=== PATIENT | male | born 1985 | race Caucasian/White ===

== ENCOUNTER 2020-07-05 22:04 | Inpatient (IN) | payer MEDICAID, MEDICARE ==
[~2020-07-05] VITALS: Ht 172.7 cm; Wt 69.4 kg
--- NOTE | 2020-07-05 22:30 | NUR ---
PT BIB [facility] FOR [facility]CH EVAL FROM [facility] DUE TO AGITATION, ANXIETY, INCREASING COMBATIVENESS AND BEING NONCOMPLIANT TO MEDICATION. PT AAOX3,VSS, RESPIRATIONS EVEN AND UNLABORED ON RA W/ NAD NOTED. PT CONNECTED TO THE MONITOR AND POX. SITTER AT BEDSIDE FOR SAFETY.
--- NOTE | 2020-07-05 22:55 | NUR ---
SHERIFF AT BEDSIDE
[2020-07-05] MEDS ORDERED: diphenhydrAMINE HCL 50 MG/ML VIAL ONE (23:05)
[2020-07-05] MEDS ORDERED: HALOPERIDOL LACTATE INJ 5 MG/ML VIAL ONE (23:05)
[2020-07-05 23:12] LABS: BASOPHILS % (AUTO) 0.2 % (0.0-2.0); EOSINOPHILS % (AUTO) 0.9 % (0.0-6.0); HEMATOCRIT 35 % (39-51); HEMOGLOBIN 11.7 g/dL (13.5-17.5); LYMPHOCYTES # (AUTO) 1.5 /CMM (0.8-4.8); LYMPHOCYTES % (AUTO) 18.2 % (20.0-44.0); MEAN CORPUSCULAR HGB CONC 33 g/dl (31.0-36.0); MEAN CORPUSCULAR VOLUME 99 fL (80-96); MONOCYTES # (AUTO) 1.1 /CMM (0.1-1.30); MONOCYTES % (AUTO) 13.3 % (2.0-12.0); NEUTROPHILS # (AUTO) 5.5 /CMM (1.8-8.9); NEUTROPHILS % (AUTO) 67.4 % (43.0-81.0); PLATELET COUNT (AUTO) 189 /CMM (150-450); RED BLOOD CELL COUNT(AUTO) 3.54 MIL/uL (4.5-6.0); WHITE BLOOD COUNT (AUTO) 8.2 K/uL (4.3-11.0)
[2020-07-05 23:27] LABS: CARBON DIOXIDE 22 mmol/L (21-32); CHLORIDE 108 mmol/L (98-107); CREATININE 1.2 mg/dL (0.6-1.3); GLUCOSE 95 mg/dL (74-106); POTASSIUM 3.8 mmol/L (3.5-5.1); SODIUM SERUM 142 mmol/L (136-145); UREA NITROGEN, BLOOD 13 mg/dL (7-18)
[2020-07-05] MEDS ORDERED: diphenhydrAMINE HCL 50 MG/ML VIAL IM ONE (23:30)
[2020-07-05] MEDS ORDERED: HALOPERIDOL LACTATE INJ 5 MG/ML VIAL IM ONE (23:30)
--- NOTE | 2020-07-05 23:30 | NUR ---
URINE COLLECTED AND SENT TO LAB
[2020-07-05] MEDS ORDERED: LORAZEPAM INJ 2 MG/ML VIAL ONE (23:32)
[2020-07-05 23:41] LABS: ALANINE AMINOTRANSFERASE 23 U/L (12-78); ALBUMIN 3.4 g/dL (3.4-5.0); ALCOHOL, BLOOD < 3 mg/dL (0-0); ALKALINE PHOSPHATASE 68 U/L (46-116); ASPARTATE AMINOTRANSFERASE 21 U/L (15-37); BILIRUBIN,DIRECT 0.1 mg/dL (0.0-0.2); BILIRUBIN,TOTAL 0.2 mg/dL (0.2-1.0); TOTAL PROTEIN, SERUM 7.1 g/dL (6.4-8.2)
[2020-07-05 23:44] LABS: ACETAMINOPHEN 0 ug/ml (10-30)
[2020-07-05 23:51] LABS: BILIRUBIN,URINE NEGATIVE (NEGATIVE); BLOOD, URINE NEGATIVE Ery/uL (NEGATIVE); COLOR,URINE YELLOW (YELLOW); LEUKOCYTE ESTERASE ,URINE NEGATIVE (NEGATIVE); NITRITE, URINE NEGATIVE (NEGATIVE); PH,URINE 6.5 (5.0-8.0); PROTEIN,URINE NEGATIVE (NEGATIVE); UGLUCOSE NEGATIVE (NEGATIVE); UROBILINOGEN,URINE 0.2 EU/dL (0.2)
--- NOTE | 2020-07-06 04:25 | NUR ---
Patient is resting comfortably in bed with eyes closed. Easily aroused. VSS
[2020-07-06] MEDS ORDERED: LORAZEPAM INJ 2 MG/ML VIAL ONE ×3 (05:16→09:54)
[2020-07-06] MEDS ORDERED: HALOPERIDOL LACTATE INJ 5 MG/ML VIAL ONE (05:17)
[2020-07-06] MEDS ORDERED: LORAZEPAM INJ 2 MG/ML VIAL IV ONE ×3 (05:30→06:00)
[2020-07-06] MEDS ORDERED: HALOPERIDOL LACTATE INJ 5 MG/ML VIAL IM ONE (05:30)
--- NOTE | 2020-07-06 06:01 | NUR ---
PT RESTLESS, MD AWARE.
[2020-07-06] MEDS ORDERED: OLANZAPINE 10 MG VIAL IM ONE ×2 (06:47→07:00)
[2020-07-06] MEDS ORDERED: LORAZEPAM INJ 2 MG/ML VIAL IM ONE ×2 (07:00→08:30)
[2020-07-06] MEDS ORDERED: diphenhydrAMINE HCL 50 MG/ML VIAL IM ONE (08:30)
--- NOTE | 2020-07-06 09:20 | NUR ---
DAD AT BEDSIDE
--- NOTE | 2020-07-06 09:30 | NUR ---
SPOKE WITH PAOLA,[phone],STS HE IS FAMILIAR WITH PATIENT AND WILL CALL [facility] TO GET PERMISSION TO TAKE HIM BACK
[2020-07-06] MEDS ORDERED: diphenhydrAMINE HCL 50 MG/ML VIAL ONE (09:53)
--- NOTE | 2020-07-06 10:51 | NUR ---
QI contacted Rcis Kym who evaluated this patient. Per Kym, patient was to return back to [facility] but patient cannot return due to patients discord at the facility. SW to follow-up with patients conservator Connie Robles (mother) and QI Soler at the [facility] .
--- NOTE | 2020-07-06 10:51 | NUR ---
QI spoke with product manufacturing professional Gener. Per Gener, QI Soler at [facility] is currently attempting to place the patient. Per product manufacturing professional Gener, pending authorization from patients insurance. Plan: This SW will wait to hear back from QI Soler at [facility] regarding status of referral. This SW will follow-up with [facility] is status is not provided
--- NOTE | 2020-07-06 12:45 | NUR ---
INFORMED LESLEE BORRERO RN,[phone] AND STEPH ORDOÑEZ WHO IS THE CONSERVATOR REGARDING PLAN TO ADMIT PATIENT TO TAKE CARE OF HIS R FOOT OM/CELLULITIS AND LATER PLACEMENT/REHAB.
[2020-07-06] MEDS ORDERED: BISA10SU11 RC (12:49)
[2020-07-06] MEDS ORDERED: ATEN25TA PO (12:49)
[2020-07-06] MEDS ORDERED: CHLO100T24 PO (12:49)
[2020-07-06] MEDS ORDERED: HYDR10SY16 PO (12:49)
[2020-07-06] MEDS ORDERED: ONDA4TAB5 PO (12:49)
[2020-07-06] MEDS ORDERED: OMEG1CAP PO (12:49)
[2020-07-06] MEDS ORDERED: MULT-447 PO (12:49)
[2020-07-06] MEDS ORDERED: SENN-261 PO (12:49)
[2020-07-06] MEDS ORDERED: TRIH2TAB3 PO (12:49)
[2020-07-06] MEDS ORDERED: GEMF600T5 PO (12:49)
[2020-07-06] MEDS ORDERED: FERR325T23 PO (12:49)
[2020-07-06] MEDS ORDERED: DIVA-78 PO ×2 (12:49→14:06)
[2020-07-06] MEDS ORDERED: TOPI100T38 PO (12:49)
[2020-07-06] MEDS ORDERED: ASCO-352 PO (12:49)
[2020-07-06] MEDS ORDERED: DOCU-141 PO (12:49)
[2020-07-06] MEDS ORDERED: MAGN400O6 PO (12:49)
[2020-07-06] MEDS ORDERED: QUET25TA PO (12:49)
[2020-07-06] MEDS ORDERED: ACET-2605 PO (12:49)
[2020-07-06] MEDS ORDERED: ACET-868 PO ×2 (12:49)
[2020-07-06] MEDS ORDERED: LORA-259 PO (12:49)
[2020-07-06] MEDS ORDERED: HEPA50007 SQ (12:49)
[2020-07-06] MEDS ORDERED: FLUV50TA3 PO (12:49)
[2020-07-06] MEDS ORDERED: ZINC1CAP2 PO (12:49)
[2020-07-06] MEDS ORDERED: VANCOMYCIN 1 GM in IV D5W 250 ML IV ONE (13:00)
[2020-07-06] MEDS ORDERED: GENTAMICIN 80 MG in IV D5W 50 ML IV ONE (13:00)
[2020-07-06] MEDS ORDERED: HYDR-4384 PO (14:06)
[2020-07-06] MEDS ORDERED: CHLO200T9 PO (14:06)
--- NOTE | 2020-07-06 14:45 | NUR ---
BED ASSIGNED IS [id number]
--- NOTE | 2020-07-06 15:00 | NUR ---
report given to [facility] for kavya
[2020-07-06] MEDS ORDERED: HYDR-3642 PO (15:59)
[2020-07-06 16:00] VITALS: BP 104/69
[2020-07-06] MEDS ORDERED: MAG HYDROX/AL HYDROX/SIMETH 30 ML UDC PO PRN (16:00)
[2020-07-06] MEDS ORDERED: ONDANSETRON HCL/PF 4 MG/2 ML VIAL IVP PRN (16:00)
[2020-07-06] MEDS ORDERED: Z GUARD REMEDY 2 OZ OINT TP PRN (16:00)
[2020-07-06] MEDS ORDERED: ZOLPIDEM TARTRATE 5 MG TABLET PO PRN (16:00)
[2020-07-06] MEDS ORDERED: ACETAMINOPHEN 325 MG TABLET PO PRN (16:00)
[2020-07-06] MEDS ORDERED: MAGNESIUM HYDROXIDE 30 ML UDC PO PRN (16:00)
--- NOTE | 2020-07-06 16:00 | NUR ---
MS DITCHING MACHINE ENGINEER NOTES ADMITTED PATIENT FROM ER, REPORT GIVEN BY ANJU PITTMAN, ALERT ORIENTED X 2, PATIENT EASILY AGITATED AND REFUSED BODY CHECK, RIGHT LOWER LEG DRESSING CHECKED,REFUSED PHOTO TAKEN, PATIENT STATING "NO". WAS ABLE TO VISUALIZE BILATERAL WRIST REDNESS AND MULTIPLE SCABS, PATIENT REFUSED PHOTO TAKEN. NO ACUTE DISTRESS NOTED. BREATHING UNLABORED. NO SOB NOTED .IV ACCESS PATENT AND INTACT, NO REDNESS, NO SWELLING NOTED. ORIENTED TO THE ROOM , SHOW HOW TO USE CALL LIGHT, PLACED WITHIN REACH. SITTER AT BEDSIDE. NEEDS ATTENDED AND ANTICIPATED. SAFETY MEASURES IN PLACE. WILL CONTINUE TO MONITOR ACCORDINGLY.
--- NOTE | 2020-07-06 16:04 | NUR ---
PT BEING TRANSPORTED TO UNIT ON [facility] WITH EMT AND SITTER AT BEDSIDE. PT IS IN STABLE CONDITION FOR TRANSPORT.
[2020-07-06] MEDS: ATENOLOL 25 MG TABLET PO SCH (17:00)
--- NOTE | 2020-07-06 17:00 | NUR ---
MS RN NOTES LOPID NOT AVAILABLE AT THIS TIME ON THE FLOOR, CALLED PHARMACY TO FOLLOW UP , SPOKE WITH KAMARI AND SAID THEY WILL BRING MEDICATION TO THE FLOOR, WILL ADMINISTER ONCE AVAILABLE.
[2020-07-06] MEDS: chlorproMAZINE HCL 25 MG TABLET PO SCH ×2 (17:01→23:52)
--- NOTE | 2020-07-06 17:03 | NUR ---
MS RN NOTES CLARIFIED DIET ORDER WITH DAVID ZAPIEN YARD COUPLER PRESENT ON THE FLOOR, WITH ORDER FOR CARDIAC DIET, ORDER CLARIFIED AND READ BACK WITH YARD COUPLER DAVID ZAPIEN, NOTED AND CARRIED OUT.
[2020-07-06] MEDS: GEMFIBROZIL 600 MG TABLET PO SCH (17:31)
[2020-07-06] MEDS: TRIHEXYPHENIDYL HCL 2 MG TABLET PO SCH (17:31)
--- NOTE | 2020-07-06 19:00 | NUR ---
MS RN NOTES PATIENT IN BED , HEAD OF BED ELEVATED , ALERT ORIENTED X 2. NO ACUTE DISTRESS NOTED. BREATHING UNLABORED. NO SOB NOTED. IV ACCESS PATENT AND INTACT, NO REDNESS NO SWELLING , NO BLEEDING NOTED. NEEDS ATTENDED AND ANTICIPATED. SITTER AT BEDSIDE. SAFETY MEASURES IN PLACE. CALL LIGHT WITHIN REACH. WILL ENDORSE TO NIGHT NURSE FOR CONTINUITY OF CARE.
--- NOTE | 2020-07-06 19:25 | NUR ---
MS RN OPENING NOTES RECEIVED PATIENT RESTING IN BED , HEAD OF BED ELEVATED , ALERT ORIENTED X 2. NO ACUTE DISTRESS NOTED. BREATHING UNLABORED. NO SOB NOTED. IV ACCESS PATENT AND INTACT, NO REDNESS NO SWELLING , NO BLEEDING NOTED. NEEDS ATTENDED AND ANTICIPATED. SITTER AT BEDSIDE. SAFETY MEASURES IN PLACE. CALL LIGHT WITHIN REACH. WILL CONTINUE TO MONITOR FOR ANY CHANGES.
--- NOTE | 2020-07-06 21:06 | NUR ---
MS RN NOTE PATIENT REFUSED VITALS DESPITE OF EXPLANATIONS X 3. WILL CONTINUE TO MONITOR FOR ANY CHANGES.
[2020-07-06] MEDS: TOPIRAMATE 100 MG TABLET PO SCH (21:18)
[2020-07-06] MEDS: hydrOXYzine 10 MG TABLET PO SCH (21:18)
[2020-07-06] MEDS: DIVALPROEX SODIUM 500 MG TABLET.DR PO SCH (22:00)
[2020-07-06] MEDS ORDERED: Medication Not On Formulary EA (Omega-3 Fatty Acids/Fish Oil (Fish Oil 1,000 Mg Capsule) PO SCH (22:00)
[2020-07-06] MEDS: FLUVOXAMINE MALEATE 50 MG TABLET PO SCH (22:57)
--- NOTE | 2020-07-06 22:59 | NUR ---
MS RN NOTE PATIENT REFUSED TO TAKE DEPAKOTE 1000MG ORDERED, GOT AGITATED & SAID, " NO, NO." WILL CONTINUE TO MONITOR.
[2020-07-06] MEDS: VANCOMYCIN 1 GM in IV D5W 250ml IV SCH (23:40)
[2020-07-06] MEDS ORDERED: chlorproMAZINE HCL 25 MG TABLET ONE (23:44)
--- NOTE | 2020-07-07 06:51 | NUR ---
MS RN NOTE: INFORMED RADIOLOGY PATIENT HAS AN ORDER OF STAT RIGHT XR COMPLETE, CALLED & INFORMED RADIOLOGY.
--- NOTE | 2020-07-07 06:54 | NUR ---
MS RN CLOSING NOTES PATIENT SLEPT INTERMITTENTLY, PREFERS HEAD OF BED ELEVATED TO HIGH TOBIN POSITION, ALERT ORIENTED X 2. NO ACUTE DISTRESS NOTED. BREATHING UNLABORED. NO SOB NOTED. IV ACCESS PATENT AND INTACT, NO REDNESS NO SWELLING , NO BLEEDING NOTED. NEEDS ATTENDED AND ANTICIPATED. SITTER AT BEDSIDE. SAFETY MEASURES IN PLACE. CALL LIGHT WITHIN REACH. WILL ENDORSE TO AM RN FOR JIM.
--- NOTE | 2020-07-07 07:29 | NUR ---
MS RN NOTE: REFUSED VANCOMYCIN PATIENT REFUSED SCHEDULED VANCOMYCIN IV TO BE HUNG, ASKED THE RN NOT TO TOUCH THE IV STAND, AGITATED, YELLING. VANCOMYCIN WAS MIXED TO BE HUNG BUT ENDORSED TO AM RN TO TRY AGAIN TO ADMINISTER THE MEDICINE WHEN PATIENT IS CALM.
[2020-07-07 07:36] LABS: BASOPHILS % (AUTO) 0.2 % (0.0-2.0); EOSINOPHILS % (AUTO) 1.5 % (0.0-6.0); HEMATOCRIT 35 % (39-51); HEMOGLOBIN 11.6 g/dL (13.5-17.5); LYMPHOCYTES # (AUTO) 1.8 /CMM (0.8-4.8); LYMPHOCYTES % (AUTO) 31.9 % (20.0-44.0); MEAN CORPUSCULAR HGB CONC 33 g/dl (31.0-36.0); MEAN CORPUSCULAR VOLUME 99 fL (80-96); MONOCYTES # (AUTO) 0.9 /CMM (0.1-1.30); MONOCYTES % (AUTO) 15.6 % (2.0-12.0); NEUTROPHILS # (AUTO) 2.9 /CMM (1.8-8.9); NEUTROPHILS % (AUTO) 50.8 % (43.0-81.0); PLATELET COUNT (AUTO) 170 /CMM (150-450); RED BLOOD CELL COUNT(AUTO) 3.52 MIL/uL (4.5-6.0); WHITE BLOOD COUNT (AUTO) 5.7 K/uL (4.3-11.0)
[2020-07-07 08:00] VITALS: BP 112/69
[2020-07-07] MEDS: GEMFIBROZIL 600 MG TABLET PO SCH ×2 (08:00→16:20)
[2020-07-07 08:05] LABS: CALCIUM, SERUM 8.8 mg/dL (8.5-10.1); CREATININE 0.9 mg/dL (0.6-1.3); MAGNESIUM 2.1 mg/dL (1.8-2.4); PHOSPHORUS 3.8 mg/dL (2.5-4.9); POTASSIUM 3.5 mmol/L (3.5-5.1)
[2020-07-07] MEDS: VANCOMYCIN 1 GM in IV D5W 250ml IV SCH ×3 (08:26→22:57)
--- NOTE | 2020-07-07 08:26 | NUR ---
Patient agreed for Vancomycin scheduled at 0700 am. Medication administrated
[2020-07-07] MEDS: hydrOXYzine 10 MG TABLET PO SCH ×2 (09:00→21:11)
[2020-07-07] MEDS: TRIHEXYPHENIDYL HCL 2 MG TABLET PO SCH ×2 (09:00→16:20)
[2020-07-07] MEDS: TOPIRAMATE 100 MG TABLET PO SCH ×2 (09:00→21:10)
[2020-07-07] MEDS: DIVALPROEX SODIUM 500 MG TABLET.DR PO SCH ×2 (09:00→21:11)
--- NOTE | 2020-07-07 09:00 | NUR ---
Patient refusing AM meds, patient unable to learn. Will attempt to administrate AM meds again
--- NOTE | 2020-07-07 10:51 | NUR ---
WOUND CARE CONSULT: PT REFUSED SKIN ASSESSMENT. PT PACING IN HIS ROOM AND WEARING AN ORTHO BOOT ON RT ANKLE. PT COMBATIVE AT TIMES PER NURSING STAFF. PT DID NOT ALLOW ANY PHOTOS. WILL SEE PT PT CONDITION PERMITS. CURRENT BERTHA SCORE IS 19. Addendum: 07/07/20 at 1053 by WILIAN REDD WNDNU DISCUSSED PT REFUSAL AND PACING BEHAVIOR WITH NURSING STAFF AND HIM ANALYST.
[2020-07-07] MEDS: chlorproMAZINE HCL 25 MG TABLET PO SCH ×3 (11:34→21:42)
[2020-07-07] MEDS: FERROUS SULFATE (325 MG) 325 MG/TAB TABLET PO SCH (11:35)
[2020-07-07] MEDS: ATENOLOL 25 MG TABLET PO SCH ×2 (11:35→16:20)
--- NOTE | 2020-07-07 11:39 | NUR ---
Patient took AM meds selectively. Rest of meds were refused and documented as non-administrated
--- NOTE | 2020-07-07 14:00 | NUR ---
Patient refused blood draw for Vancomycin trough. Education provided , patient still refusing
[2020-07-07] MEDS: ENOXAPARIN SODIUM 40 MG/0.4 ML DISP.SYRIN SQ SCH (15:00)
--- NOTE | 2020-07-07 15:27 | NUR ---
Patient refused second attempt sfor blood draw
--- NOTE | 2020-07-07 15:28 | NUR ---
Patient refused Lovenox , he became very agitated; yells out. Will attempt to administer later
--- NOTE | 2020-07-07 16:10 | NUR ---
Vancomycin scheduled for 1500 pm not administrated. Patient refused vanco trough 2 times.
--- NOTE | 2020-07-07 17:28 | NUR ---
Per pharmacist Vanco at 2300 can be administrated without vanco trough if patient will agree
--- NOTE | 2020-07-07 18:23 | NUR ---
Patient is calm at this time, sitter at bedside. Patient has no s/s any type of distress. IV lines intact and covered with sleeves. Patient is oriented x1, easily agitated , does not like to be touched. Safety precautions in place . Will endorse to next shift for JIM
--- NOTE | 2020-07-07 19:41 | NUR ---
RN OPENING NOTES PATIENT RECEIVED SITTING ON FLOOR, A/O X1. STABLE ON RA WITH BREATHING EVEN AND UNLABORED, NO SOB NOTED. NO SIGNS OF ACUTE DISTRESS. NO COMPLAINTS OR SIGNS OF PAIN OR DISCOMFORT. IV LOCATED ON LAC #20 SL AND R AC #20 SL. SAFETY PRECAUTIONS IN PLACE WITH BED IN LOWEST POSITION, CALL LIGHT ON BED, SAFETY PRECAUTIONS IN PLACE. 1:1 SITTER. WILL CONTINUE TO MONITOR THROUGHOUT THE NIGHT.
--- NOTE | 2020-07-07 20:14 | NUR ---
PATIENT SITTING ON FLOOR, REFUSE TO LAY IN BED. REFUSED 2000 VITALS, WILL TRY AGAIN LATER. NO SIGNS OF ACUTE DISTRESS.
--- NOTE | 2020-07-07 21:00 | NUR ---
PATIENT REFUSED BLOOD DRAW FOR VANCO TROUGH SCHEDULED EARLIER IN THE DAY AT 1400
[2020-07-07] MEDS: FLUVOXAMINE MALEATE 50 MG TABLET PO SCH (21:11)
[2020-07-07] MEDS ORDERED: chlorproMAZINE HCL 25 MG TABLET ONE (21:30)
[2020-07-07 22:12] VITALS: BP 115/78
--- NOTE | 2020-07-07 22:13 | NUR ---
PATIENT ALLOWED TO TAKE VITALS. PATIENT TOOK ALL MEDICATIONS.
--- NOTE | 2020-07-07 22:33 | NUR ---
PATIENT ALLOWED TO DRAW BLOOD FOR VANCO TROUGH
[2020-07-07] MEDS: HYDROCODONE/APAP 5/325MG TABLET PO PRN (22:57)
--- NOTE | 2020-07-07 23:08 | NUR ---
PATIENT COMPLAINING OF PAIN ON R LEG SCREAMING THAT IT HURTS AND POINTING AT LEG. PRN NORCO ADMINISTERED. ASSISTED WITH REMOVING BOOT, BUT PATIENT DID NOT ALLOW TO TOUCH DRESSING OR FOOT.
--- NOTE | 2020-07-07 23:55 | NUR ---
IV VANCOMYCIN UNABLE TO FINISH. IV PUMP SHOWS DOWNSTREAM OCCLUSION, PATIENT NOT ALLOWING TO FLUSH IV SITE OR TOUCH IV PUMP. PATIENT AGITATED AND YELLING. APPROXIMATELY 50 ML INFUSED.
--- NOTE | 2020-07-08 00:36 | NUR ---
CONTINUED IV VANCO, ABLE FINISH ADMINISTRATION
[2020-07-08] MEDS: VANCOMYCIN 1 GM in IV D5W 250ml IV SCH ×2 (06:09→17:20)
--- NOTE | 2020-07-08 06:45 | NUR ---
RN CLOSING NOTES PATIENT RESTING IN BED, A/O X1 EASILY AGITATED. STABLE ON RA WITH BREATHING EVEN AND UNLABORED, NO SOB NOTED. NO SIGNS OF ACUTE DISTRESS. NO COMPLAINTS OR SIGNS OF PAIN OR DISCOMFORT. IV LOCATED ON LAC #20 SL AND R AC #20 SL. BOOT LOCATED ON R FOOT. SAFETY PRECAUTIONS IN PLACE WITH BED IN LOWEST POSITION, CALL LIGHT ON BED, SAFETY PRECAUTIONS IN PLACE. 1:1 SITTER. ALL NEEDS ATTENDED TO. WILL ENDORSE TO ONCOMING SHIFT ABOUT JMI.
[2020-07-08 06:50] LABS: CALCIUM, SERUM 9.1 mg/dL (8.5-10.1); POTASSIUM 3.6 mmol/L (3.5-5.1)
--- NOTE | 2020-07-08 07:11 | NUR ---
MS RN OPENING NOTES PATIENT RECEIVED AWAKE IN BED IN NO ACUTE SIGNS OF DISTRESS. 1:1 SITTER PRESENT AT BEDSIDE. A/O X1. VERBALLY RESPONSIVE. QUIET AND CALM AT THIS TIME. STABLE ON RA WITH BREATHING EVEN AND UNLABORED. IV LOCATED ON LAC #20 SL AND R AC #20 SL. SAFETY PRECAUTIONS IN PLACE: BED IN LOWEST LOCKED POSITION, SIDE-RAILS UP X2. CALL LIGHT ON. WILL CONTINUE TO MONITOR PT ACCORDINGLY.
--- NOTE | 2020-07-08 07:20 | NUR ---
RN NOTES Stopped Vancomycin, vanco trough received at 27. 100 ml infused. Vanco trough pulled last night at 2200 showed as 12.
[2020-07-08 08:00] VITALS: BP 122/84
[2020-07-08] MEDS: chlorproMAZINE HCL 25 MG TABLET PO SCH ×3 (08:16→23:11)
[2020-07-08] MEDS: DIVALPROEX SODIUM 500 MG TABLET.DR PO SCH ×3 (08:16→20:17)
[2020-07-08] MEDS: TRIHEXYPHENIDYL HCL 2 MG TABLET PO SCH ×2 (08:17→16:10)
[2020-07-08] MEDS: FERROUS SULFATE (325 MG) 325 MG/TAB TABLET PO SCH (08:17)
[2020-07-08] MEDS: TOPIRAMATE 100 MG TABLET PO SCH ×2 (08:17→20:17)
[2020-07-08] MEDS: GEMFIBROZIL 600 MG TABLET PO SCH ×2 (08:17→16:10)
[2020-07-08] MEDS: hydrOXYzine 10 MG TABLET PO SCH ×2 (08:18→20:17)
[2020-07-08] MEDS: ATENOLOL 25 MG TABLET PO SCH ×2 (08:18→16:11)
[2020-07-08] MEDS: ENOXAPARIN SODIUM 40 MG/0.4 ML DISP.SYRIN SQ SCH (08:21)
--- NOTE | 2020-07-08 09:21 | NUR ---
RN NOTES ASKED PT IF I CAN DO REMOVE DRESSING, DO WOUND ASSESSMENT AND TAKE PHOTOS OF RIGHT LEG/FOOT BUT PT REFUSED. WILL TRY AGAIN LATER.
--- NOTE | 2020-07-08 13:47 | NUR ---
RN NOTES PT IN HIS ROOM AND PER HIS 1:1 SITTER, PT SUDDENLY PICK-UP HIS MEDICAL RIGHT BOOT AND HIT HIS ROOM WINDOW AND BROKE IT WITHOUT ANY PROVOCATION. I WENT TO PT ROOM IMMEDIATELY, TALKED TO HIM WHY HE DID IT BUT HE STATED THAT HE JUST DID IT WITHOUT ANY REASON. SECURITY CALLED, CAME TO UNIT AND ASSISTED PT TO HIS NEW ROOM. PT WAS MOVED TO ROOM 329. YANNI SHAW MADE AWARE. PT'S MOTHER INFORMED. PT IN HIS ROOM CALM AND QUIET AT THIS TIME. WILL CONTINUE TO CLOSELY MONITOR PT.
[2020-07-08 16:00] VITALS: BP 110/59
--- NOTE | 2020-07-08 16:52 | NUR ---
PT REFUSED THE ARTERIAL DPLR LOWER EXT EXAM. ADVISED ATTENDING RN. WILL TRY AGAIN TOMORROW WHEN PT IS COOPERATIVE.
[2020-07-08] MEDS ORDERED: chlorproMAZINE HCL 25 MG TABLET PO PRN (18:00)
[2020-07-08] MEDS: VANCOMYCIN 0.75 GM in IV D5W 250 ML IV SCH (18:00)
--- NOTE | 2020-07-08 18:33 | NUR ---
RN NOTES IV VANCO SCHEDULED FOR 1800 NOT ADMINISTERED, IT WAS GIVEN EARLIER AT 1720. PHARMACIST AUTUMN MADE AWARE. NEW DOSE OF IV VANCO 0.75 MG/25OML D5W TO BE ADMINISTRED AT SCHEDULED TIME AT 0200. WILL CONTINUE TO MONITOR.
--- NOTE | 2020-07-08 19:28 | NUR ---
MS RN CLOSING NOTES PATIENT IN BED AWAKE AND RESTING AT SEMI-TOBIN'S POSITION. 1:1 SITTER PRESENT AT BEDSIDE. A/O X1. VERBALLY RESPONSIVE. EASILY AGITATED AND SCREAMS ON AND OFF DURING THE DAY. STABLE ON RA WITH BREATHING EVEN AND UNLABORED, NO SOB NOTED DURING THE DAY. PIV'S ON LAC #20 SL AND R AC #20 SL BOTH INTACT, PATENT FLUSHES WELL. ALL NEEDS ANTICIPATED AND PROVIDED WELL. SAFETY PRECAUTIONS IN PLACE: BED IN LOWEST LOCKED POSITION, SIDE-RAILS UP X2. CALL LIGHT ON. ENDORSED TO COATING MACHINE OPERATOR HELPER NURSE OSCAR FOR JIM.
--- NOTE | 2020-07-08 19:36 | NUR ---
MS RN OPEN NOTES PT IS LAYING IN BED. A/O X1, GETS EASILY AGITATED. ON RA, NO SOB/ ACUTE RESPIRATORY DISTRESS NOTED. IV IN R AC #22G IS PATENT AND INTACT. BED IS IN LOWEST LOCKED POSITION WITH SIDE RAILS UP X3, SEMI FOWLERS. CALL LIGHT IS WITHIN REACH. 1:1 SITTER IS AT BED SIDE. WILL CONTINUE TO MONITOR.
[2020-07-08 20:00] VITALS: BP 103/66
--- NOTE | 2020-07-08 21:00 | NUR ---
MS RN NOTES PT DID NOT ALLOW LAB TO DRAW BLOOD.
[2020-07-08] MEDS: FLUVOXAMINE MALEATE 50 MG TABLET PO SCH (22:27)
--- NOTE | 2020-07-09 00:20 | NUR ---
MS RN NOTES PT REFUSED DRESSING CHANGE ON R FOOT WOUND. ALSO REFUSED SAMPLE OF WOUND FOR WOUND CULTURE. WILL TRY AGAIN LATER AND WILL CONTINUE TO MONITOR.
[2020-07-09] MEDS: VANCOMYCIN 0.75 GM in IV D5W 250 ML IV SCH ×3 (01:45→18:00)
--- NOTE | 2020-07-09 06:30 | NUR ---
MS RN NOTES PT REFUSED BLOOD DRAW FOR LAB.
--- NOTE | 2020-07-09 06:57 | NUR ---
MS RN CLOSE NOTES PATIENT IS LAYING IN BED. A/O X1, GETS AGITATED EASILY. PT IS STABLE ON RA, NO SOB/ACUTE RESPIRATORY DISTRESS NOTED. IVS IN L AC #20G AND R AC #22G ARE PATENT AND INTACT, ABLE TO FLUSH EASILY. ALL DUE ANTIBIOTICS/MEDS GIVEN. 1:1 SITTER IS AT BEDSIDE. BED IS IN LOWEST LOCKED POSITION WITH SIDE RAILS UP X2, SEMI FOWLERS. CALL LIGHT IS WITHIN REACH. WILL ENDORSE TO AM NURSE.
--- NOTE | 2020-07-09 07:18 | NUR ---
ms rn received on bed, awake,alert,oriented x 1,not in any form of distress, calm at this moment but easily agitated and shouting per curve cleaner, no s/s of pain at this time, w/ sitter for safety and comfort,all needs attended.
[2020-07-09 08:00] VITALS: BP 112/62
[2020-07-09] MEDS: ATENOLOL 25 MG TABLET PO SCH ×2 (09:00→18:27)
--- NOTE | 2020-07-09 09:50 | NUR ---
ms webster breakfast served,due meds given, tolerated well.
--- NOTE | 2020-07-09 10:00 | NUR ---
ms rn refused mri today, shouting again to semiconductor technician, refused blood draw today.
[2020-07-09] MEDS: TOPIRAMATE 100 MG TABLET PO SCH ×2 (10:07→20:55)
[2020-07-09] MEDS: TRIHEXYPHENIDYL HCL 2 MG TABLET PO SCH ×2 (10:07→18:12)
[2020-07-09] MEDS: GEMFIBROZIL 600 MG TABLET PO SCH ×2 (10:08→18:12)
[2020-07-09] MEDS: hydrOXYzine 10 MG TABLET PO SCH ×2 (10:08→20:55)
[2020-07-09] MEDS: DIVALPROEX SODIUM 500 MG TABLET.DR PO SCH ×3 (10:08→20:54)
[2020-07-09] MEDS: FERROUS SULFATE (325 MG) 325 MG/TAB TABLET PO SCH (10:08)
[2020-07-09] MEDS: chlorproMAZINE HCL 25 MG TABLET PO SCH ×3 (10:12→22:55)
[2020-07-09] MEDS: ENOXAPARIN SODIUM 40 MG/0.4 ML DISP.SYRIN SQ SCH (10:29)
[2020-07-09] MEDS ORDERED: chlorproMAZINE HCL 25 MG TABLET PO PRN (10:30)
--- NOTE | 2020-07-09 11:30 | NUR ---
ms rn refused venous doppler today, mom is aware that he is refusing everything
[2020-07-09 16:00] VITALS: BP 105/63
--- NOTE | 2020-07-09 17:00 | NUR ---
ms rn asked dr. morrow if he is going to do debridment today, said that not sure if patient cooperate.
[2020-07-09 17:53] LABS: CALCIUM, SERUM 8.7 mg/dL (8.5-10.1); CREATININE 1.2 mg/dL (0.6-1.3); POTASSIUM 3.8 mmol/L (3.5-5.1)
--- NOTE | 2020-07-09 18:03 | NUR ---
ms rn on bed,no distress noted.all needs attended, refused to change dressing of the wound,denies pain at this time.
--- NOTE | 2020-07-09 18:05 | NUR ---
ms rn patient still refused to take a look at his wound, shouting everytime i look at it.
--- NOTE | 2020-07-09 19:00 | NUR ---
ms rn verified vanco dose w/ rx ok to give it tonight.
[2020-07-09 20:00] VITALS: BP 113/67
[2020-07-09] MEDS ORDERED: LORAZEPAM 1 MG TABLET PO ONE (20:00)
--- NOTE | 2020-07-09 20:00 | NUR ---
RE: VANCO TROUGH and GIVING VANCO Called the pharmacy and spoke to Meghana at 1900 and 200 regarding the Vanco trough being 25 and should I give the 2100 dose as ordered, she stated yes to give. Called back at 1999 and she reaasured me to give that modifications were made and to give the 2100 dose.
[2020-07-09] MEDS: VANCOMYCIN 1 GM in IV D5W 250ml IV SCH (20:56)
[2020-07-09] MEDS: FLUVOXAMINE MALEATE 50 MG TABLET PO SCH (22:35)
[2020-07-09] MEDS ORDERED: chlorproMAZINE HCL 25 MG TABLET ONE ×2 (22:46→22:50)
--- NOTE | 2020-07-10 04:56 | NUR ---
ALFRED NOTES: HIS MOTHER WAS CALLED @[phone] Jasmin ON am SHIFT AND MYSELF GOT THE CONSENT OVER TH PHONE FOR DEBRIDMENT AND GRAFT. HE IS LOUD AND AGGRESSIVE. WILL REPEAT HIMSELF FREQ. AND LOUD. AMBULATED AROUND THE CORRIDOR TIMES 3 WITH NUSE AT HIS SIDE STEADY GAIT. NEEDS TO BE TALKED INTO EVERYTHING THAT IS TO BE GIVEN TO HIM (MEDS) OR DONE TO HIM iv atb. SITTER AT THE BEDSIDE THRU THE NIGHT
--- NOTE | 2020-07-10 07:00 | NUR ---
RN OPENING NOTES RECEIVED PT AWAKE IN BED AT THIS TIME. PT IS CALM AND EASILY GETS AGITATED PER BRIDGE MAINTENANCE WORKER NURSE. NO SOB NOTED, NO S/S OF ANY ACUTE DISTRESS NOTED. NO C/O PAIN AT THIS TIME. RESPIRATIONS ARE EVEN AND UNLABORED. PT IS STABLE ON RA. IV ACCESS NOTED IN LAC G# 20, INTACT, PATENT AND FLUSHING WELL. PT NOTED WITH RIGHT FOOT WOUND. SAFETY PRECAUTION IN PLACE AND MAINTAINED AT ALL TIMES. BED IN LOWEST LOCKED POSITION, HOB ELEVATED, SIDE RAILS UP X 2, CALL LIGHT AND TABLE WITHIN REACH. WILL CONTINUE TO MONITOR.
[2020-07-10 08:43] VITALS: BP 125/63
[2020-07-10] MEDS: GEMFIBROZIL 600 MG TABLET PO SCH ×2 (08:43→16:35)
[2020-07-10] MEDS: chlorproMAZINE HCL 25 MG TABLET PO SCH ×3 (08:43→21:15)
[2020-07-10] MEDS: ATENOLOL 25 MG TABLET PO SCH ×2 (08:43→16:37)
[2020-07-10] MEDS: hydrOXYzine 10 MG TABLET PO SCH ×2 (08:43→20:24)
[2020-07-10] MEDS: FERROUS SULFATE (325 MG) 325 MG/TAB TABLET PO SCH (08:43)
[2020-07-10] MEDS: DIVALPROEX SODIUM 500 MG TABLET.DR PO SCH ×3 (08:43→20:23)
[2020-07-10] MEDS: TRIHEXYPHENIDYL HCL 2 MG TABLET PO SCH ×2 (08:44→16:36)
[2020-07-10] MEDS: TOPIRAMATE 100 MG TABLET PO SCH ×2 (08:44→20:24)
[2020-07-10] MEDS: ENOXAPARIN SODIUM 40 MG/0.4 ML DISP.SYRIN SQ SCH (08:49)
--- NOTE | 2020-07-10 09:00 | NUR ---
PT VANCO TROUGH 25 on 07/09/20. [facility], PHOTOGRAPHY INTERN MADE AWARE. PER [facility] ADMINISTER SCHEDULED VANCOMYCIN AND VANCO TROUGH LEVEL WILL BE DRAWN TOMORROW 07/11/20. WILL CONTINUE WITH PLAN OF CARE
[2020-07-10] MEDS: VANCOMYCIN 1 GM in IV D5W 250ml IV SCH ×2 (09:12→20:25)
--- NOTE | 2020-07-10 09:30 | NUR ---
WOUND TREATMENT ADMINISTERED AT THIS TIME. PT TOLERATED WELL. WILL CONTINUE TO MONITOR
[2020-07-10 09:43] LABS: CALCIUM, SERUM 8.8 mg/dL (8.5-10.1); CREATININE 1.2 mg/dL (0.6-1.3); POTASSIUM 3.5 mmol/L (3.5-5.1)
--- NOTE | 2020-07-10 15:20 | NUR ---
RECEIVED ORDERS FROM DR CARTWRIGHT TO OBTAIN CONSENT EXCISIONAL DEBRIDEMENT POSSIBLE SPLIT THICKNESS SKIN GRAFT. ORDERS CARRIED OUT. PT SIGNED CONSENT FOR PROCEDURE, CONSENT FOR BLOOD AND CONSENT FOR ANESTHESIA. ALL CONSENTS FILED IN CHART. WILL CONTINUE TO MONITOR AND CONTINUE WITH PLAN OF CARE
--- NOTE | 2020-07-10 16:04 | NUR ---
TIAGO ([phone]), PT'S MOTHER CALLED AND WAS UPDATED ON PT'S STATUS. WILL CONTINUE [facility] PLAN OF CARE
--- NOTE | 2020-07-10 18:40 | NUR ---
PT PENDING DISCHARGE TO [facility] AT THIS TIME. REPORT CALLED IN TO ZAIN SCHNEIDER AT [facility]. PT IN MEDICALLY STABLE CONDITION. ALL DISCHARGE INSTRUCTIONS PROVIDED. PT VERBALIZE UNDERSTANDING. BELONGINGS ACCOUNTED FOR, SIGNED BY PT AND FILED IN CHART. BELONGINGS GIVEN TO PATIENT. PICTURES TAKEN AND FILED IN CHART. WILL CONTINUE TO MONITOR
--- NOTE | 2020-07-10 18:46 | NUR ---
MS RN CLOSING NOTES PT AWAKE IN BED AT THIS TIME. PT REMAINED STABLE THROUGHOUT SHIFT. ALL CARE, NEEDS, MEDICATION AND WOUND TREATMENT ADMINISTERED ANTICIPATED PER ORDER. SAFETY PRECAUTION IN PLACE AND MAINTAINED AT ALL TIMES. BED IN LOWEST LOCKED POSITION, HOB ELEVATED, SIDE RAILS UP X 2, CALL LIGHT AND TABLE WITHIN REACH. WILL ENDORSE TO RECYCLABLE MATERIALS SORTER NURSE FOR JIM
--- NOTE | 2020-07-10 20:00 | NUR ---
RN NOTES RECEIVED PATIENT IN ROOM, CALM AT THIS TIME, FREQUENTLY WALKING, CAN BE AGGRESSIVE, SITTER OUTSIDE OF ROOM, KEPT SAFE, WILL CONTINUE TO MONITOR.
[2020-07-10 20:09] VITALS: BP 119/62
[2020-07-10] MEDS: FLUVOXAMINE MALEATE 50 MG TABLET PO SCH (21:15)
[2020-07-10 22:00] VITALS: BP 119/62
[2020-07-11] MEDS: OLANZAPINE 10 MG VIAL IM PRN ×2 (05:29→11:11)
--- NOTE | 2020-07-11 05:50 | NUR ---
RN NOTES PACING THE ROOM, GOING IN AND OUT OF TOILET AND LOCKING THE DOOR. BEHAVIOR ESCALATING, SCREAMING, AGITATED AND UNREDIRECTABLE, GIVEN ZYPREXA IM, WITH THE HELP OF SECURITY. UNABLE TO START IV LINE, ATTEMPTED X4 DURING SHIFT, PATIENT BECOMES AGITATED EVERY TIME.
--- NOTE | 2020-07-11 06:37 | NUR ---
RN NOTES PATIENT AGGRESSIVE, UNPREDICTABLE BEHAVIOR, UNCOOPERATIVE, SCREAMING, UNABLE TO RE INSERT IV LINE, GIVEN ZYPREXA IM, STILL AGGRESSIVE, GOING IN AND OUT OF TOILET, RN ALTERED LOCK SO PATIENT CANNOT LOCK DOOR. SITTER FOR SAFETY. PLANNED I&D OF RIGHT FOOT, IF PATIENT IS COOPERATIVE, CONSENT SIGNED BY MOTHER AND IN CHART.
--- NOTE | 2020-07-11 07:50 | NUR ---
RN MS OPENING NOTES RECEIVED PATIENT AWAKE IN BED, A/OX1, PT WITH AUTISM. PATIENT ON RA WITH NO S/S OF SOB OR ACUTE RESPIRATORY DISTRESS; BREATHING EVEN AND UNLABORED. NO IV IN PLACE AT THIS TIME. PATIENT REFUSING TO HAVE IV PLACED. MD NOTIFIED. RT FOOT WOUND WITH DRESSING IN PLACE CLEAN AND DRY. PT HAS 1:1 SITTER. BED IS AT LOWEST POSITION AND LOCKED WITH SIDE RAILS UPX2 AND CALL LIGHT WITH IN REACH. WILL CONTINUE TO MONITOR PATIENT THROUGH OUT SHIFT.
[2020-07-11 08:00] VITALS: BP 109/67
[2020-07-11] MEDS: chlorproMAZINE HCL 25 MG TABLET PO SCH ×3 (08:26→21:02)
[2020-07-11] MEDS: GEMFIBROZIL 600 MG TABLET PO SCH ×2 (08:27→16:27)
[2020-07-11] MEDS: DIVALPROEX SODIUM 500 MG TABLET.DR PO SCH ×3 (08:27→20:49)
[2020-07-11] MEDS: FERROUS SULFATE (325 MG) 325 MG/TAB TABLET PO SCH (08:28)
[2020-07-11] MEDS: TRIHEXYPHENIDYL HCL 2 MG TABLET PO SCH ×2 (08:28→16:27)
[2020-07-11] MEDS: TOPIRAMATE 100 MG TABLET PO SCH ×2 (08:28→21:03)
[2020-07-11] MEDS: hydrOXYzine 10 MG TABLET PO SCH ×2 (08:28→21:01)
[2020-07-11] MEDS: ATENOLOL 25 MG TABLET PO SCH ×2 (08:29→16:27)
[2020-07-11] MEDS: ENOXAPARIN SODIUM 40 MG/0.4 ML DISP.SYRIN SQ SCH (08:31)
--- NOTE | 2020-07-11 08:58 | NUR ---
RN MS NOTES PATIENT REFUSED VANCO IV, PT WITH AGGRESSIVE BEHAVIOR, REFUSING IV PLACED. CONTACTED DR. Violet SHAW AND ASKED TO HAVE VANCO SWITCHED TO PO. PER DR. SHAW SHE WILL CONSULT WITH ID.
[2020-07-11] MEDS: VANCOMYCIN 1 GM in IV D5W 250ml IV SCH ×2 (09:00→20:50)
--- NOTE | 2020-07-11 10:30 | NUR ---
RN MS NOTES SILO MAN NOTIFIED ME PATIENT REFUSED LAB DRAW.
--- NOTE | 2020-07-11 14:50 | NUR ---
ZAIN MS NOTES CONTACTED DR. WILSON NOTIFIED ZYPREXA WAS GIVEN THIS MORNING D/T AGGRESSION. ASKED FOR PRN ORDERS IN CASE PATIENT BECOMES AGRESSIVE AGAIN DURING SHIFT, SINCE ZYPREXA IS ORDERED FOR NO MORE THAN [address] WILSON AGREED AND WILL PLACE ORDERS. PER DR. WILSON I WILL PLACE ORDERS FOR PSYCH EVAL FOR TOMORROW. Addendum: 07/11/20 at 1506 by RUPERTO FRAZIER RN FACE SHEET FAXED TO [facility]entioned @[address] DR[address] MCCORMICK POWER [employer]LECT[employer] RESEARCH ENGINEER TOMORROW
[2020-07-11 16:00] VITALS: BP 109/59
[2020-07-11 16:09] LABS: CALCIUM, SERUM 8.6 mg/dL (8.5-10.1); CREATININE 1.1 mg/dL (0.6-1.3); POTASSIUM 3.7 mmol/L (3.5-5.1)
--- NOTE | 2020-07-11 18:31 | NUR ---
RN MS CLOSING NOTES PATIENT RESTING IN BED, A/OX1, PT WITH AUTISM AND EPISODES OF AGGRESSION. PATIENT ON RA WITH NO S/S OF SOB OR ACUTE RESPIRATORY DISTRESS; BREATHING EVEN AND UNLABORED. NO IV IN PLACE AT THIS TIME, PATIENT CONTINUES TO REFUSE TO HAVE IV PLACED. MD AWARE. RT FOOT WOUND WITH DRESSING IN PLACE KEPT CLEAN AND DRY. PT WITH 1:1 SITTER. BED AT LOWEST POSITION AND LOCKED WITH SIDE RAILS UPX2 AND CALL LIGHT WITH IN REACH. WILL ENDORSE TO ONCOMING SHIFT
--- NOTE | 2020-07-11 20:00 | NUR ---
RN NOTES PATIENT PACING IN ROOM, QUIET, NOT IN APPARENT DISTRESS, SITTER OUTSIDE OF DOOR FOR SAFETY. WILL CONTINUE TO MONITOR
--- NOTE | 2020-07-11 20:50 | NUR ---
RN NOTES VANCOMYCIN IV NOT GIVEN, NO IV ACCESS, REFUSING IV INSERTION, PATIENT IS AGITATED
[2020-07-11] MEDS: FLUVOXAMINE MALEATE 50 MG TABLET PO SCH (21:02)
[2020-07-11] MEDS: SULFAMETH/TRIMETH 800/160 MG 1 UDTAB TABLET PO SCH (21:37)
[2020-07-11 22:00] VITALS: BP 107/66
[2020-07-11] MEDS ORDERED: AMOX/CLAVULANATE 875 MG TABLET ONE (22:21)
[2020-07-11] MEDS: AMOX/CLAVULANATE 875 MG TABLET PO SCH (22:23)
[2020-07-12 05:30] VITALS: BP 114/65
--- NOTE | 2020-07-12 06:41 | NUR ---
RN NOTES ALERT AND AWAKE, ROOM AIR, NO COMPLAIN OF PAIN, UNPREDICTABLE BEHAVIOR WITH OCCASIONAL OUTBURST, TOOK ALL PM MEDS, SLEEPING ON AND OFF, SITTER OUTSIDE OF ROOM, REFUSED RIGHT FOOT WOUND CARE, FOR I&D 07/13/20, MRI IF PATIENT COOPERATIVE. CONTINUE SUPPORTIVE CARE.
[2020-07-12 07:17] LABS: CALCIUM, SERUM 8.9 mg/dL (8.5-10.1); CREATININE 1.2 mg/dL (0.6-1.3); POTASSIUM 3.7 mmol/L (3.5-5.1)
[2020-07-12] MEDS: chlorproMAZINE HCL 25 MG TABLET PO SCH ×3 (07:43→22:49)
[2020-07-12] MEDS: GEMFIBROZIL 600 MG TABLET PO SCH ×2 (07:45→16:00)
[2020-07-12] MEDS: DIVALPROEX SODIUM 500 MG TABLET.DR PO SCH ×3 (07:45→20:57)
--- NOTE | 2020-07-12 07:50 | NUR ---
RN MS OPENING NOTES RECEIVED PATIENT AWAKE IN BED, A/OX1, PT WITH AUTISM. PATIENT ON RA WITH NO S/S OF SOB OR ACUTE RESPIRATORY DISTRESS; BREATHING EVEN AND UNLABORED. NO IV IN PLACE MD AWARE. RT FOOT WOUND WITH DRESSING IN PLACE CLEAN AND DRY. PT HAS 1:1 SITTER. BED IS AT LOWEST POSITION AND LOCKED WITH SIDE RAILS UPX2 AND CALL LIGHT WITH IN REACH. WILL CONTINUE TO MONITOR PATIENT THROUGH OUT SHIFT.
[2020-07-12 08:00] VITALS: BP 105/72
[2020-07-12] MEDS: VANCOMYCIN 1 GM in IV D5W 250ml IV SCH (08:42)
[2020-07-12] MEDS: SULFAMETH/TRIMETH 800/160 MG 1 UDTAB TABLET PO SCH ×2 (08:43→21:51)
[2020-07-12] MEDS: hydrOXYzine 10 MG TABLET PO SCH ×2 (08:43→21:50)
[2020-07-12] MEDS: TOPIRAMATE 100 MG TABLET PO SCH ×2 (08:43→21:50)
[2020-07-12] MEDS: TRIHEXYPHENIDYL HCL 2 MG TABLET PO SCH ×2 (08:43→16:12)
[2020-07-12] MEDS: FERROUS SULFATE (325 MG) 325 MG/TAB TABLET PO SCH (08:43)
[2020-07-12] MEDS: ATENOLOL 25 MG TABLET PO SCH ×2 (08:44→16:18)
[2020-07-12] MEDS: AMOX/CLAVULANATE 875 MG TABLET PO SCH ×2 (08:49→21:51)
[2020-07-12] MEDS: ENOXAPARIN SODIUM 40 MG/0.4 ML DISP.SYRIN SQ SCH (08:57)
--- NOTE | 2020-07-12 09:00 | NUR ---
RN MS NOTES PT REFUSED LOVENOX. AWARE
[2020-07-12 16:00] VITALS: BP 101/55
--- NOTE | 2020-07-12 18:39 | NUR ---
RN MS CLOSING NOTES PATIENT RESTING IN BED, A/OX1, PT WITH AUTISM AND EPISODES OF AGGRESSION AND OUTBURST OF SCREAMING. PATIENT IS ON RA WITH NO S/S OF SOB OR ACUTE RESPIRATORY DISTRESS NOTED, PT IS BREATHING EVEN AND UNLABORED. NO IV IN PLACE, MD AWARE. PATIENT REFUSED WOUND CARE. PT WITH 1:1 SITTER. BED IS AT LOWEST POSITION AND LOCKED WITH SIDE RAILS UPX2 AND CALL LIGHT WITH IN REACH. WILL ENDORSE TO ONCOMING SHIFT
[2020-07-12 22:17] VITALS: BP 110/60
[2020-07-12] MEDS: FLUVOXAMINE MALEATE 50 MG TABLET PO SCH (22:48)
--- NOTE | 2020-07-12 23:44 | NUR ---
RN MS OPENING NOTES RECEIVED PATIENT AWAKE IN BED, A/OX1, PT WITH AUTISM. NO S/S OF SOB OR ACUTE RESPIRATORY DISTRESS; BREATHING EVEN AND UNLABORED. NO PAIN AT THIS TIME. NO IV IN PLACE MD AWARE. RT FOOT WOUND WITH DRESSING IN PLACE CLEAN AND DRY. PT EASILY ANGRY AND AGITATED. PT HAS 1:1 SITTER. BED IS AT LOWEST POSITION AND LOCKED WITH SIDE RAILS UPX2 AND CALL LIGHT WITH IN REACH. WILL CONTINUE TO MONITOR PATIENT THROUGH OUT SHIFT.
--- NOTE | 2020-07-12 23:44 | NUR ---
MS RN NOTES: REFUSED PICTURE PT REFUSED WEEKLY PICTURE SKIN ASSESSMENT ON HIS RIGHT FOOT. PT INCREASED AGITATION AND ANGRY. PT STATED, "NO." EXPLAIN RISKS AND BENEFITS. PT STILL REFUSED. WILL TRY AGAIN LATER AND WILL ENDORSE TO DAY SHIFT. CONTINUE TO MONITOR.
[2020-07-13 03:32] VITALS: BP 119/80
--- NOTE | 2020-07-13 05:45 | NUR ---
MS/RN CLOSING NOTE PATIENT REMAINS IN STABLE CONDITION. PT IN BED SLEEPING AND QUIET OF RIGHT NOW. A/0 X 1. PATIENT ON ROOM AIR, TOLERATING WELL. BREATHING EVEN, NON LABORED, NO SOB NOTED. EXPLAIN TO PT HE IS STILL NPO AND HIS PROCEDURE IS TODAY AT 0730. PT DID NOT RESPOND AND REFUSE EYE CONTACT AND WENT BACK TO BED . NO PAIN AT THIS TIME. ALL NEEDS ATTENDED THROUGHOUT THE SHIFT.
[2020-07-13 05:54] VITALS: BP 103/64
[2020-07-13 06:28] LABS: BASOPHILS % (AUTO) 0.5 % (0.0-2.0); EOSINOPHILS % (AUTO) 1.8 % (0.0-6.0); HEMATOCRIT 37 % (39-51); HEMOGLOBIN 12.1 g/dL (13.5-17.5); LYMPHOCYTES # (AUTO) 1.9 /CMM (0.8-4.8); LYMPHOCYTES % (AUTO) 28.9 % (20.0-44.0); MEAN CORPUSCULAR HGB CONC 33 g/dl (31.0-36.0); MEAN CORPUSCULAR VOLUME 100 fL (80-96); MONOCYTES # (AUTO) 0.6 /CMM (0.1-1.30); MONOCYTES % (AUTO) 9.4 % (2.0-12.0); NEUTROPHILS % (AUTO) 59.4 % (43.0-81.0); PLATELET COUNT (AUTO) 200 /CMM (150-450); RED BLOOD CELL COUNT(AUTO) 3.71 MIL/uL (4.5-6.0); WHITE BLOOD COUNT (AUTO) 6.7 K/uL (4.3-11.0)
[2020-07-13] MEDS ORDERED: ANESTHESIA TRAY IN PYXIS 1 EA TRAY MC ONE (07:04)
[2020-07-13] MEDS ORDERED: BUPIVACAINE 0.5 % PF 150 MG/30 ML VIAL ONE (07:04)
[2020-07-13] MEDS ORDERED: LIDOCAINE HCL/PF 1% 30 ML SDV ONE (07:05)
[2020-07-13] MEDS ORDERED: BACITRACIN 50000 UNITS/VIAL ONE (07:05)
[2020-07-13] MEDS ORDERED: FENTANYL PF 100MCG/2ML AMPUL ONE (07:20)
--- NOTE | 2020-07-13 07:25 | NUR ---
MS RN OPENING NOTES BEDSIDE ENDORSEMENT DONE. PATIENT IS IN BED, AWAKE AND VERBALLY RESPONSIVE. A/O X1, RESPONDS TO SIMPLE QUESTIONS AND COMMANDS. BREATHING EVEN AND UNLABORED, TOLERATING ROOM AIR, NOT IN ACUTE DISTRESS. FOR SCHEDULED PROCEDURE TODAY OF WOUND DEBRIDEMENT, CONSENT FORM SIGNED AND IN PATIENT'S CHART. NO IV LINE PATIENT REFUSES PER BOARDING HOUSE COOK RN. PATIENT W/ 1:1 SITTER AT BEDSIDE. SAFETY PRECAUTIONS IN PLACE: BED LOCKED AND ON LOWEST POSITION, SR UP X2, CALL LIGHT W/IN REACH. WILL CONTINUE TO MONITOR.
--- NOTE | 2020-07-13 07:30 | NUR ---
RN NOTES PATIENT WAS PICKED UP FOR SURGERY ACCOMPANIED BY OR NURSE GARCIA AND 1 OR TECH VIA PATIENT'S BED.
[2020-07-13] MEDS: DIVALPROEX SODIUM 500 MG TABLET.DR PO SCH ×3 (07:46→21:08)
[2020-07-13] MEDS: GEMFIBROZIL 600 MG TABLET PO SCH ×2 (07:46→16:05)
[2020-07-13] MEDS: chlorproMAZINE HCL 25 MG TABLET PO SCH ×3 (07:46→21:09)
[2020-07-13] MEDS ORDERED: VANCOMYCIN 1 GM in IV D5W 250ml IV ONE (08:30)
[2020-07-13] MEDS: hydrOXYzine 10 MG TABLET PO SCH ×2 (08:34→21:08)
[2020-07-13] MEDS: TRIHEXYPHENIDYL HCL 2 MG TABLET PO SCH ×2 (08:34→16:05)
[2020-07-13] MEDS: AMOX/CLAVULANATE 875 MG TABLET PO SCH ×2 (08:34→21:09)
[2020-07-13] MEDS: SULFAMETH/TRIMETH 800/160 MG 1 UDTAB TABLET PO SCH ×2 (08:35→21:08)
[2020-07-13] MEDS: FERROUS SULFATE (325 MG) 325 MG/TAB TABLET PO SCH (08:35)
[2020-07-13] MEDS: ATENOLOL 25 MG TABLET PO SCH ×2 (08:37→16:07)
[2020-07-13] MEDS: ENOXAPARIN SODIUM 40 MG/0.4 ML DISP.SYRIN SQ SCH (08:37)
[2020-07-13] MEDS: TOPIRAMATE 100 MG TABLET PO SCH ×2 (08:37→21:08)
--- NOTE | 2020-07-13 09:45 | NUR ---
RN NOTES PATIENT RETURNED FROM OR ACCOMPANIED BY OR NURSE KARIME, S/P R FOOT WOUND DEBRIDEMENT, POSSIBLE SPLIT THICKNESS SKIN GRAFT, POSSIBLE WOUND VAC ANKLE. NOTED W/ WOUND VAC ON R FOOT/ANKLE AREA 125MMHG. VS TAKEN: BP-94/56, P-69, R-18, SPO2-100% IN R/A, T-97.6. WITH LEFT HAND IV #22 INTACT AND COVERED W/ DRESSING PER OR NURSE. WILL CONTINUE TO MONITOR
--- NOTE | 2020-07-13 10:13 | NUR ---
RN NOTES ORDERS NOTED FROM DR. CEJA.
--- NOTE | 2020-07-13 12:00 | NUR ---
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 pt non-compliant for 2 hours, pt doing house chores; folding linens, making beds, arranging his towels and belongings. despite teachings and encouragement, pt still refuses instructions. monitored closely. will continue to monitor.
[2020-07-13 16:00] VITALS: BP 113/70
--- NOTE | 2020-07-13 18:50 | NUR ---
MS RN CLOSING NOTES PATIENT IS IN BED, AWAKE AND VERBALLY RESPONSIVE. A/O X1, RESPONDS TO SIMPLE QUESTIONS. BREATHING EVEN AND UNLABORED, TOLERATING ROOM AIR, NOT IN ACUTE DISTRESS. S/P R FOOT WOUND DEBRIDEMENT, DRESSING ON RLE C/D/I. WOUND VAC AT BEDSIDE AT 125MMHG. PATIENT HAS L HAND IV #22 PER OR NURSE; TRIED TO ASSESS LINE BUT PATIENT REFUSES AREA TO BE TOUCHED. WITH 1:1 SITTER AT BEDSIDE. SAFETY PRECAUTIONS MAINTAINED: BED LOCKED AND ON LOWEST POSITION, SR UP X2, CALL LIGHT W/IN REACH. WILL ENDORSE TO DIRECTOR CLOUD TRANSFORMATION RN FOR JIM.
[2020-07-13 20:00] VITALS: BP 97/58
--- NOTE | 2020-07-13 20:00 | NUR ---
Received report from AM nurse. Patient in bed, awake, watching TV. Noted wearing home cloths. Patient refused physical assessment and refused for me to check her IV access. Noted bhupinder bandage wrapped around left arm where IV access is. Patient on room air and breathing well, no SOB or acute respiratory distress noted, breathing even and unlabored. On 1:1 sitter. Safety measures in place, bed is in the lowest level, bed is locked, alarm is on, side rails x2 are up, and call light is within reach.
[2020-07-13] MEDS: FLUVOXAMINE MALEATE 50 MG TABLET PO SCH (21:08)
[2020-07-14 06:47] LABS: BASOPHILS % (AUTO) 0.2 % (0.0-2.0); EOSINOPHILS % (AUTO) 0.8 % (0.0-6.0); HEMATOCRIT 34 % (39-51); HEMOGLOBIN 11.4 g/dL (13.5-17.5); LYMPHOCYTES % (AUTO) 25.2 % (20.0-44.0); MEAN CORPUSCULAR HGB CONC 33 g/dl (31.0-36.0); MEAN CORPUSCULAR VOLUME 100 fL (80-96); MONOCYTES # (AUTO) 0.8 /CMM (0.1-1.30); MONOCYTES % (AUTO) 10.2 % (2.0-12.0); NEUTROPHILS # (AUTO) 5.1 /CMM (1.8-8.9); NEUTROPHILS % (AUTO) 63.6 % (43.0-81.0); PLATELET COUNT (AUTO) 195 /CMM (150-450); RED BLOOD CELL COUNT(AUTO) 3.45 MIL/uL (4.5-6.0)
[2020-07-14 06:57] LABS: CALCIUM, SERUM 8.3 mg/dL (8.5-10.1); CREATININE 1.3 mg/dL (0.6-1.3); PHOSPHORUS 3.2 mg/dL (2.5-4.9); POTASSIUM 3.7 mmol/L (3.5-5.1)
--- NOTE | 2020-07-14 07:15 | NUR ---
MS RN OPENING NOTES BEDSIDE ENDORSEMENT DONE. PATIENT IS IN BED, AWAKE AND VERBALLY RESPONSIVE. A/O X1. BREATHING EVEN AND UNLABORED, TOLERATING ROOM AIR, NOT IN ACUTE DISTRESS. IV LINE NOTED ON L HAND SECURED W/ BRITNEY BANDAGE; PATIENT DID NOT ALLOW ME TO CHECK IT. DRESSING ON RLE C/D/I. WOUND VAC AT BEDSIDE AT 125MMHG. WITH 1:1 SITTER AT BEDSIDE. SAFETY PRECAUTIONS IN PLACE: BED LOCKED AND ON LOWEST POSITION, SR UP X2, CALL LIGHT W/IN REACH. WILL CONTINUE TO MONITOR.
--- NOTE | 2020-07-14 07:30 | NUR ---
RN CLOSING NOTE: Patient in bed resting comfortably. Patient is breathing even and unlabored. No SOB or acute respiratory distress noted. Safety precaution maintained, bed is in the lowest level, bed is locked, alarm is on, side rails x2 are up, and call light is within reach. Will endorse to AM nurse for continuity of care.
[2020-07-14] MEDS: chlorproMAZINE HCL 25 MG TABLET PO SCH ×3 (08:00→21:15)
--- NOTE | 2020-07-14 08:02 | NUR ---
WOUND CARE: [employer] WOUND VAC TO RT ANKLE FUNCTIONING WELL AT 125mmHg WITH SMALL AMOUNT OF PINK DRAINAGE IN CANISTER.
[2020-07-14] MEDS: ENOXAPARIN SODIUM 40 MG/0.4 ML DISP.SYRIN SQ SCH (09:00)
[2020-07-14] MEDS: FERROUS SULFATE (325 MG) 325 MG/TAB TABLET PO SCH (09:11)
[2020-07-14] MEDS: ATENOLOL 25 MG TABLET PO SCH ×2 (09:11→17:10)
[2020-07-14] MEDS: GEMFIBROZIL 600 MG TABLET PO SCH ×2 (09:12→17:09)
[2020-07-14] MEDS: TOPIRAMATE 100 MG TABLET PO SCH ×2 (09:12→20:11)
[2020-07-14] MEDS: DIVALPROEX SODIUM 500 MG TABLET.DR PO SCH ×3 (09:12→20:10)
[2020-07-14] MEDS: hydrOXYzine 10 MG TABLET PO SCH ×2 (09:12→20:10)
[2020-07-14] MEDS: TRIHEXYPHENIDYL HCL 2 MG TABLET PO SCH ×2 (09:15→17:10)
[2020-07-14] MEDS: SULFAMETH/TRIMETH 800/160 MG 1 UDTAB TABLET PO SCH ×2 (09:15→20:11)
[2020-07-14] MEDS: AMOX/CLAVULANATE 875 MG TABLET PO SCH ×2 (09:18→20:14)
--- NOTE | 2020-07-14 14:32 | NUR ---
RN NOTES PATIENT ALLOWED ME TO REMOVE SALINE LOCK ON LEFT HAND; NO BLEEDING NOTED.
--- NOTE | 2020-07-14 18:56 | NUR ---
MS RN CLOSING NOTES PATIENT IS IN BED, AWAKE AND VERBALLY RESPONSIVE. A/O X1, RESPONDS TO SIMPLE QUESTIONS. BREATHING EVEN AND UNLABORED, TOLERATING ROOM AIR. IV LINE ON L HAND INFILTRATED, REMOVED TODAY PATIENT ALLOWED RN TO ASSESS AND REMOVE LINE. DRESSING ON RLE C/D/I. WOUND VAC AT BEDSIDE AT 125MMHG, MINIMAL AMOUNT OF SEROSANGUINEOUS DRAINAGE. 1:1 SITTER AT BEDSIDE. SAFETY PRECAUTIONS MAINTAINED: BED LOCKED AND ON LOWEST POSITION, SR UP X2, CALL LIGHT W/IN REACH. WILL ENDORSE TO PROPOSAL DEVELOPMENT MANAGER RN FOR JIM.
--- NOTE | 2020-07-14 19:30 | NUR ---
MS RN OPENING NOTES RECEIVED PATIENT IN BED, ALERT AND ORIENTED X 1 CALM AND VERBALLY RESPONSIVE. BREATHING REGULAR AND UNLABORED ON ROOM AIR. NO IV ACCESS. RIGHT FOOT WOUND VAC INTACT WITH MINIMAL OUTPUT NOTED. NO S/S OF PAIN/DISCOMFORT SEEN AT THIS TIME. ON 1:1 SITTER FOR SAFETY AND BEHAVIOR. BED LOW AND LOCKED ON HIGH FOWLERS POSITION. CALL LIGHT IN REACH. WILL CONTINUE TO MONITOR.
[2020-07-14 20:00] VITALS: BP 105/57
[2020-07-14] MEDS: FLUVOXAMINE MALEATE 50 MG TABLET PO SCH (21:14)
--- NOTE | 2020-07-15 06:55 | NUR ---
MS RN CLOSING NOTES PATIENT IN BED, ALERT AND ORIENTED X 1 CALM AND COOPERATIVE. AFEBRILE WITH NO S/S OF DISTRESS OBSERVED. RIGHT FOOT WOUND VAC INTACT WITH MINIMAL OUTPUT NOTED. NO S/S OF PAIN/DISCOMFORT SEEN AT THIS TIME. ON 1:1 SITTER FOR SAFETY AND BEHAVIOR. BED LOW AND LOCKED ON HIGH FOWLERS POSITION. CALL LIGHT IN REACH. WILL ENDORSE TO MORNING SHIFT FOR JIM.
[2020-07-15 08:00] VITALS: BP 99/51
[2020-07-15] MEDS: SULFAMETH/TRIMETH 800/160 MG 1 UDTAB TABLET PO SCH (08:15)
[2020-07-15] MEDS: hydrOXYzine 10 MG TABLET PO SCH (08:15)
[2020-07-15] MEDS: chlorproMAZINE HCL 25 MG TABLET PO SCH ×2 (08:15→17:07)
[2020-07-15] MEDS: DIVALPROEX SODIUM 500 MG TABLET.DR PO SCH ×2 (08:15→13:25)
[2020-07-15] MEDS: TRIHEXYPHENIDYL HCL 2 MG TABLET PO SCH ×2 (08:15→17:08)
[2020-07-15] MEDS: GEMFIBROZIL 600 MG TABLET PO SCH ×2 (08:15→17:07)
[2020-07-15] MEDS: TOPIRAMATE 100 MG TABLET PO SCH (08:15)
[2020-07-15] MEDS: FERROUS SULFATE (325 MG) 325 MG/TAB TABLET PO SCH (08:15)
[2020-07-15] MEDS: HYDROCODONE/APAP 5/325MG TABLET PO PRN (08:16)
[2020-07-15 09:00] VITALS: BP 99/51
[2020-07-15] MEDS: ATENOLOL 25 MG TABLET PO SCH ×2 (09:00→17:07)
[2020-07-15] MEDS ORDERED: DAKINS QUARTER STRENGTH (0.125%) 480 ML BOTTLE TOP SCH (09:00)
[2020-07-15] MEDS: ENOXAPARIN SODIUM 40 MG/0.4 ML DISP.SYRIN SQ SCH (09:00)
--- NOTE | 2020-07-15 09:04 | NUR ---
WOUND CARE: PT SEEN FOR WOUND VAC DRESSING CHANGE PER DR CEJA. SKIN PREP AND VAC DRAPE USED FOR ALL PERIWOUND AREAS, OIL EMULSION DRESSING USED FOR TENDON PROTECTION ON AREA OF WOUND NEAR TOES, GRANUFOAM TO WOUND (ONE DONUT SHAPED PIECE). VAC AT 125mmHg CONTINUOUS SETTING. CANISTER HAS 30cc PINK DRAINAGE. FOOT AND HEEL WOUNDS DRESSED WITH BETADINE SOAKED GAUZE, ALL WRAPPED WITH KERLIX AND GENTLE BRITNEY PER ORDER. PT TOLERATED WELL.
[2020-07-15] MEDS: AMOX/CLAVULANATE 875 MG TABLET PO SCH (09:43)
[2020-07-15 11:27] LABS: BASOPHILS % (AUTO) 0.4 % (0.0-2.0); EOSINOPHILS % (AUTO) 2.1 % (0.0-6.0); HEMATOCRIT 34 % (39-51); HEMOGLOBIN 11.3 g/dL (13.5-17.5); LYMPHOCYTES # (AUTO) 1.5 /CMM (0.8-4.8); LYMPHOCYTES % (AUTO) 25.9 % (20.0-44.0); MEAN CORPUSCULAR HGB CONC 33 g/dl (31.0-36.0); MEAN CORPUSCULAR VOLUME 101 fL (80-96); MONOCYTES # (AUTO) 0.7 /CMM (0.1-1.30); MONOCYTES % (AUTO) 11.2 % (2.0-12.0); NEUTROPHILS # (AUTO) 3.6 /CMM (1.8-8.9); NEUTROPHILS % (AUTO) 60.4 % (43.0-81.0); PLATELET COUNT (AUTO) 185 /CMM (150-450); RED BLOOD CELL COUNT(AUTO) 3.41 MIL/uL (4.5-6.0); WHITE BLOOD COUNT (AUTO) 5.9 K/uL (4.3-11.0)
[2020-07-15 11:43] LABS: CALCIUM, SERUM 8.7 mg/dL (8.5-10.1); CREATININE 1.3 mg/dL (0.6-1.3); PHOSPHORUS 3.8 mg/dL (2.5-4.9); POTASSIUM 4.1 mmol/L (3.5-5.1)
[2020-07-15] MEDS ORDERED: SODI473S8 TOP (12:22)
[2020-07-15] MEDS ORDERED: Sulfameth/Trimeth 800/160 Mg PO (12:22)
[2020-07-15] MEDS ORDERED: Amox/Clavulanate PO (12:22)
[2020-07-15] MEDS ORDERED: OLAN10VI IM (12:22)
--- NOTE | 2020-07-15 16:30 | NUR ---
CALLED IN REPORT TO FEDERICO BONILLA OF [facility] ALTERNATE PHONE NUMBER ,THE D.O.N. IS ZAIN MENDOZA. IRENE CALLED BACK SAYING THAT [email or web address] MENDOZA WANTS ANOTHER COVID RAPID TEST TO BE DONE BECAUSE THE RAPID TEST RESULT THEIR FACILITY REQUIRES IS ATLEAST WITHIN 3 DAY. NOTIFIED ANALYTICAL LAB TECHNICIAN,NINO AND IMPORT/EXPORT ANALYSTHIPOLITO.
[2020-07-15 17:03] VITALS: BP 111/62
--- NOTE | 2020-07-15 17:20 | NUR ---
BROUGHT THE COVID RAPID TEST SPECIMEN TO THE LAB
--- NOTE | 2020-07-15 19:00 | NUR ---
PT'S RAPID COVID TEST RESULT IS NEGATIVE.NOTIFIED FEDERICO BONILLA OF [facility] AND MADE AWARE.AWAITING FOR AMBULANCE PROCESS LINE OPERATOR AT 2029. WITH STABLE V/S.PT DENIES ANY PAIN OR DISTRESS.ENDORSED PT TO NIGHT NURSE CARE.
[2020-07-15 19:30] VITALS: BP 110/60
--- NOTE | 2020-07-15 19:38 | NUR ---
MS RN NOTES RECEIVED A/O X1,BREATHING EASY,NO SOB,NO IV ACCESS.DRESSING TO RIGHT FOOT INTACT AND DRY,CONNECTED TO WOUND VAC,SITTER AT BEDSIDE FOR SAFETY,FOR DISCHARGE TO [facility] AWAITING FOR PICK BY [facility] TRANSPORT TO THE FACILITY.WILL CONTINUE TO MONITOR STATUS.
--- NOTE | 2020-07-15 20:00 | NUR ---
MS RN NOTES WOUND VAC REMOVED,DRESSING CHANGE DONE WITH DAKINS [employer]UTION,PAT DRY,APPLIED XEROFORM,AND WRAPPED WITH KERLIX.
--- NOTE | 2020-07-15 20:12 | NUR ---
MS RN NOTES SALES AGENT INSURANCE BY AMBULANCE CREW THIS TIME IN STABLE CONDITION.
== END 2020-07-15 20:12 | DRG 344 ==
LOC: ER 22:08 → MED 07-06 14:51
PROVIDERS: ADMIT Nurse Practitioner Acute Care; ATTEND Nurse Practitioner Acute Care
PROC: 0JBQ0ZZ Excision of Right Foot Subcutaneous Tissue and Fascia, Open Approach (ICD-10-PCS; principal; 2020-07-13)
PROC: 2W1QX6Z Compression of Right Lower Leg using Pressure Dressing (ICD-10-PCS; 2020-07-13)
DX: M86.8X7 Other osteomyelitis, ankle and foot (principal); G93.41 Metabolic encephalopathy; F84.0 Autistic disorder; M84.463A Pathological fracture, right fibula, initial encounter for fracture; F25.9 Schizoaffective disorder, unspecified; F79 Unspecified intellectual disabilities; F41.9 Anxiety disorder, unspecified; Z91.14 Patient's other noncompliance with medication regimen; L85.9 Epidermal thickening, unspecified; L97.318 Non-pressure chronic ulcer of right ankle with other specified severity; L97.418 Non-pressure chronic ulcer of right heel and midfoot with other specified severity; B96.4 Proteus (mirabilis) (morganii) as the cause of diseases classified elsewhere; B96.89 Other specified bacterial agents as the cause of diseases classified elsewhere; Z91.19 Patient's noncompliance with other medical treatment and regimen; I10 Essential (primary) hypertension
CPT/HCPCS: 36415; 73610-TC; 80048-TC; 80061-TC; 80076-TC; 80164-TC; 80202-TC; 81001; 83735-TC; 84100-TC; 85025-TC; 85610-TC; 85652-TC; 85730-TC; 86140-TC; 87070-TC; 87081-TC; 87186-TC; A4217; A6209; A6253; A6403; C9803; G0378; G0480; J1100; J1200; J1580; J1630; J1650; J1885; J2060; J2405; J3010; J3230; J3370; J3490; J7050; J7060; Q0161; Q0177